=== PATIENT | female | born 1940 | race Caucasian/White ===

== ENCOUNTER 2017-04-09 13:13 | Emergency (ER) | payer MEDICARE ==
[~2017-04-09] VITALS: Ht 152.4 cm; Wt 67.2 kg
[~2017-04-09 13:13] MED LIST: ALPR-475 PO; AMLO5TAB2 PO; ATOR20TA9 PO; BIFI4CAP PO; CHOL100018 PO; CIPR500T87 PO; CYAN500T22 PO; FERR134T2 PO; FLUT50DI INH; HYDR25TA6 PO; LISI40TA PO; METF500T4 PO; METH750T2 PO; METO25TA35 PO; METR500T PO; MULT-717 PO; NITR100C56 PO; OMEP-110 PO; POTA20TA89 PO; POTA20TA91 PO; SIMV20TA3 PO
[2017-04-09] MEDS ORDERED: SODIUM CHLORIDE FLUSH 10ML SYR IVF ONE (14:30)
[2017-04-09] MEDS ORDERED: SODIUM CHLORIDE 0.9% 1,000ML IVBOLUS ONE (14:30)
[2017-04-09 14:47] LABS: ASPARTATE AMINO TRANSFERASE 19 U/L (15-37); BLOOD UREA NITROGEN 9 mg/dL (7-18)
[2017-04-09 15:13] VITALS: BP 125/77
== END 2017-04-09 15:43 | disposition home or self-care (01) ==
LOC: ED 15:37
DX: K92.1 Melena (principal); Z87.440 Personal history of urinary (tract) infections; K21.9 Gastro-esophageal reflux disease without esophagitis; E11.8 Type 2 diabetes mellitus with unspecified complications; I10 Essential (primary) hypertension; Z88.0 Allergy status to penicillin; Z88.1 Allergy status to other antibiotic agents
CPT/HCPCS: 36415; 80053; 83605; 85025; 86850; 86900; 93005; 96360; 99285; J7030

== ENCOUNTER 2017-05-22 04:59 | Emergency (ER) | payer MEDICARE ==
[~2017-05-22] VITALS: Ht 152.4 cm; Wt 64.9 kg
[2017-05-22 06:07] LABS: ASPARTATE AMINO TRANSFERASE 15 U/L (15-37); BLOOD UREA NITROGEN 11 mg/dL (7-18)
[2017-05-22 06:30] VITALS: BP 136/78
== END 2017-05-22 06:38 | disposition home or self-care (01) ==
LOC: ED 05:49
DX: R19.7 Diarrhea, unspecified (principal); Z88.0 Allergy status to penicillin
CPT/HCPCS: 36415; 80053; 83605; 83690; 85025; 85610; 93005; 99285

== ENCOUNTER → 2017-06-07 | Outpatient (CLI) | payer MEDICARE | END | disposition home or self-care (01) | LOC: CFH 13:34 → EDSTATUS 14:15 | PROVIDERS: ATTEND Nurse Practitioner | DX: M50.30 Other cervical disc degeneration, unspecified cervical region (principal); M48.02 Spinal stenosis, cervical region; M50.20 Other cervical disc displacement, unspecified cervical region; M43.12 Spondylolisthesis, cervical region; M25.78 Osteophyte, vertebrae | CPT/HCPCS: 72040; 72141 ==

== ENCOUNTER → 2017-10-31 | Outpatient (CLI) | payer MEDICARE ==
[~2017-10-31] MED LIST changes: +CHOL100012 PO; -CHOL100018 PO
== END | disposition home or self-care (01) ==
LOC: CFH 07:28
PROVIDERS: ATTEND Nurse Practitioner Family
DX: Z12.31 Encounter for screening mammogram for malignant neoplasm of breast (principal)
CPT/HCPCS: 77063; G0202

== ENCOUNTER → 2018-04-24 | Outpatient (CLI) | payer MEDICARE ==
[~2018-04-24] MED LIST changes: +SAXA5TAB PO
== END ==
LOC: CVU 09:19
PROVIDERS: ATTEND Internal Medicine Cardiovascular Disease
DX: I35.0 Nonrheumatic aortic (valve) stenosis (principal); I10 Essential (primary) hypertension; E11.9 Type 2 diabetes mellitus without complications
CPT/HCPCS: 93306

== ENCOUNTER → 2018-06-03 | Outpatient (CLI) | payer MEDICARE ==
[~2018-06-03] MED LIST changes: -METF500T4 PO; +METF500T5 PO; +OMNIPAQUE 350 MG/ML, 100ML BOTTLE ONE
== END | disposition home or self-care (01) ==
LOC: CFH 13:55
PROVIDERS: ATTEND Internal Medicine Cardiovascular Disease
DX: I77.810 Thoracic aortic ectasia (principal)
CPT/HCPCS: 71275; 82565; Q9967

== ENCOUNTER 2018-08-30 09:59 | Observation (INO) | payer MEDICARE ==
[~2018-08-30] VITALS: Ht 152.4 cm; Wt 65.9 kg
[~2018-08-30 09:59] MED LIST changes: -AMLO5TAB2 PO; +AMLO5TAB7 PO; +METF500T17 PO; -METF500T5 PO; -OMNIPAQUE 350 MG/ML, 100ML BOTTLE ONE
[2018-08-30] MEDS ORDERED: ASPIRIN 81 MG TABLET CHEW PO ONE (10:30)
[2018-08-30] MEDS ORDERED: NITROGLYCERIN SINGLE TAB 0.4 MG SL PRN (10:30)
[2018-08-30] MEDS ORDERED: SODIUM CHLORIDE FLUSH 10ML SYR IVF ONE (10:30)
[2018-08-30] MEDS ORDERED: ASPIRIN 81 MG TABLET CHEW ONE (10:57)
[2018-08-30 11:15] LABS: ALBUMIN 4.2 g/dL (3.4-5.0); ANION GAP 8 mmol/L (5-15); CALCIUM 9.5 mg/dL (8.5-10.1); CHLORIDE 100 mmol/L (98-107)
[2018-08-30 11:17] LABS: D-DIMER 0.57 ug/mlFEU (0.00-0.52); INTERNATIONAL NORMALIZED RATIO 0.97 (0.93-1.1)
[2018-08-30 11:20] LABS: ALANINE AMINOTRANSFERASE 22 U/L (12-78); ALKALINE PHOSPHATASE 80 U/L (45-117); BILIRUBIN,TOTAL 0.4 mg/dL (0.2-1.0); CREATININE 0.72 mg/dL (0.55-1.02); TOTAL PROTEIN 8.6 g/dL (6.4-8.2); TROPONIN I < 0.015 ng/mL (0.000-0.045)
[2018-08-30 11:22] LABS: BASOPHILS # (AUTO) 0.04 x10^3/uL (0-0.1); BASOPHILS % (AUTO) 0 % (0-1); EOSINOPHILS # (AUTO) 0.74 x10^3/uL (0-0.4); EOSINOPHILS % (AUTO) 8 % (1-7); LYMPHOCYTES # (AUTO) 2.85 x10^3/uL (1-3.4); LYMPHOCYTES % (AUTO) 31 % (22-44); MD NO; MEAN CORPUSCULAR HEMOGLOBIN 31.6 pg (27.0-34.8); MEAN CORPUSCULAR HGB CONC 33.8 g/dL (32.4-35.8); MEAN CORPUSCULAR VOLUME 93.6 fL (80-100); MEAN PLATELET VOLUME 8.2 fL (7.4-10.4); MONOCYTES # (AUTO) 0.95 x10^3/uL (0.2-0.8); MONOCYTES % (AUTO) 10 % (2-9); NEUTROPHILS # (AUTO) 4.76 x10^3/uL (1.8-6.8); NEUTROPHILS % (AUTO) 51 % (42-75); PLATELET COUNT 259 x10^3/uL (130-400)
[2018-08-30] MEDS ORDERED: ATOR20TA PO (11:30)
[2018-08-30] MEDS ORDERED: [UNRECOGNIZED DRUG - OTHER] PO (11:30)
[2018-08-30] MEDS ORDERED: TRIA15CR3 TD (11:30)
[2018-08-30] MEDS ORDERED: MELA1TAB22 PO (11:30)
[2018-08-30] MEDS ORDERED: ALKALOL (11:30)
[2018-08-30] MEDS ORDERED: GLIM2TAB2 PO (11:30)
[2018-08-30] MEDS ORDERED: METH1TAB21 PO (11:30)
[2018-08-30] MEDS ORDERED: ASCO10004 PO (11:30)
[2018-08-30] MEDS ORDERED: BIFI4CAP PO (11:30)
[2018-08-30] MEDS ORDERED: LISI40TA PO (11:30)
[2018-08-30] MEDS ORDERED: NITROGLYCERIN SINGLE TAB 0.4 MG SL ONE (12:12)
[2018-08-30 13:06] VITALS: BP 133/73
[2018-08-30] MEDS ORDERED: HYDROcodone/APAP 5/325 TABLET PO PRN (14:00)
[2018-08-30] MEDS ORDERED: TEMAZEPAM 15 MG CAPSULE PO PRN (14:00)
[2018-08-30] MEDS ORDERED: ONDANSETRON 2MG/ML, 2ML IVPush PRN (14:00)
[2018-08-30] MEDS ORDERED: LABETALOL 5MG/ML, 20ML IVPush PRN (14:00)
[2018-08-30] MEDS ORDERED: morphine SULFATE 10 MG/ML, 1ML IVPush PRN (14:00)
[2018-08-30] MEDS ORDERED: ACETAMINOPHEN 325 MG TABLET PO PRN (14:00)
[2018-08-30] MEDS ORDERED: OMNIPAQUE 350 MG/ML, 100ML BOTTLE ONE (15:50)
[2018-08-30] MEDS: POTASSIUM CHLORIDE 20 MEQ TAB.ER.PRT PO SCH ×2 (17:26→17:27)
[2018-08-30 20:35] VITALS: BP 106/63
[2018-08-30] MEDS: METHENAMINE HIPPURATE 1 GM TABLET PO SCH (20:51)
[2018-08-30] MEDS: ASCORBIC ACID 500 MG TABLET PO SCH (20:51)
[2018-08-30] MEDS ORDERED: ATORVASTATIN 20 MG TABLET PO SCH (21:00)
[2018-08-30] MEDS ORDERED: TRIAMCINOLONE CRM 0.1%, 15GM TP SCH (21:00)
[2018-08-30] MEDS ORDERED: TRIAMCINOLONE CRM 0.1%, 15GM TP PRN (21:00)
[2018-08-30] MEDS ORDERED: TEMPLATE NON-FORMULARY MED. (Melatonin/Pyridoxine Hcl (B6)** (Melatonin 3 Mg Tablet**) 1 T HOMEMEDPO SCH (21:00)
[2018-08-30] MEDS ORDERED: TEMPLATE NON-FORMULARY MED. (Bifidobacterium Infantis** (Align**) 4 MG) HOMEMEDPO SCH (21:00)
[2018-08-30] MEDS ORDERED: FLUTICASONE PROPIONATE HOMEMEDPO SCH (21:00)
[2018-08-30 22:29] LABS: TROPONIN I < 0.015 ng/mL (0.000-0.045)
[2018-08-31 01:50] VITALS: BP 107/66
[2018-08-31 05:18] LABS: TROPONIN I < 0.015 ng/mL (0.000-0.045)
[2018-08-31 05:35] LABS: HEMOGLOBIN A1C 6.3 % (4.2-6.3)
[2018-08-31] MEDS ORDERED: METOPROLOL SUCCINATE 25 MG TAB.ER.24H PO SCH (06:00)
[2018-08-31 06:03] VITALS: BP 122/64
[2018-08-31 08:22] VITALS: BP 143/76
[2018-08-31] MEDS ORDERED: REGADENOSON 0.4 MG/5 ML SYRINGE ONE (08:27)
[2018-08-31] MEDS ORDERED: MULTIVITAMIN 1 TABLET PO SCH (09:00)
[2018-08-31] MEDS ORDERED: GLIMEPIRIDE 1 MG TABLET PO SCH (09:00)
[2018-08-31] MEDS ORDERED: HYDROCHLOROTHIAZIDE 25 MG TABLET PO SCH (09:00)
[2018-08-31] MEDS ORDERED: TEMPLATE NON-FORMULARY MED. (Bifidobacterium Infantis** (Align**) 4 MG) HOMEMEDPO SCH (09:00)
[2018-08-31] MEDS ORDERED: CYANOCOBALAMIN 1,000 MCG TABLET PO SCH (09:00)
[2018-08-31] MEDS ORDERED: AMLODIPINE 5 MG TABLET PO SCH (09:00)
[2018-08-31] MEDS ORDERED: CHOLECALCIFEROL 1,000 UNIT TABLET PO SCH (09:00)
[2018-08-31] MEDS: POTASSIUM CHLORIDE 20 MEQ TAB.ER.PRT PO SCH ×2 (10:39→16:00)
[2018-08-31] MEDS: LISINOPRIL 20 MG TABLET PO SCH ×2 (10:41→11:27)
[2018-08-31] MEDS: ASCORBIC ACID 500 MG TABLET PO SCH (10:41)
[2018-08-31] MEDS: METHENAMINE HIPPURATE 1 GM TABLET PO SCH (10:42)
[2018-08-31] MEDS: OMEPRAZOLE 20 MG CAPSULE.DR PO SCH ×2 (10:42→16:01)
[2018-08-31] MEDS ORDERED: METO25TA91 PO (10:43)
[2018-08-31 13:48] VITALS: BP 111/72
[2018-08-31 14:52] LABS: CLOSTRIDIUM DIFFICILE ANTIGEN NEGATIVE; CLOSTRIDIUM DIFFICILE TOXIN NEGATIVE (Negative)
== END 2018-08-31 17:03 | disposition home or self-care (01) ==
LOC: ED 11:14 → EDIP 12:02 → INTOOBSV 12:02 → 5SO 12:48
PROVIDERS: ADMIT Internal Medicine; ATTEND Internal Medicine
DX: R07.9 Chest pain, unspecified (principal); E11.9 Type 2 diabetes mellitus without complications; E78.00 Pure hypercholesterolemia, unspecified; E78.5 Hyperlipidemia, unspecified; I10 Essential (primary) hypertension; J45.909 Unspecified asthma, uncomplicated; K21.9 Gastro-esophageal reflux disease without esophagitis; Z23 Encounter for immunization; Z80.0 Family history of malignant neoplasm of digestive organs; Z80.8 Family history of malignant neoplasm of other organs or systems; Z82.49 Family history of ischemic heart disease and other diseases of the circulatory system; Z86.010 Personal history of colon polyps; Z86.19 Personal history of other infectious and parasitic diseases; Z86.79 Personal history of other diseases of the circulatory system; Z87.19 Personal history of other diseases of the digestive system; Z90.710 Acquired absence of both cervix and uterus
CPT/HCPCS: 36415; 71045; 71275; 78452; 80053; 82962; 83036; 83690; 84443; 84484; 85025; 85379; 85610; 85730; 87324; 93005; 93017; 99285; A9502; C9898; G0378; J2785; Q9967

== ENCOUNTER 2018-12-28 10:12 | Inpatient (IN) | payer MEDICARE ==
[~2018-12-28] VITALS: Ht 152.4 cm; Wt 63.0 kg
[~2018-12-28 10:12] MED LIST changes: +ALKALOL; +AMLO-150 PO; -AMLO5TAB7 PO; +ASCO10004 PO; +ATOR20TA PO; +ATOR20TA37 PO; -ATOR20TA9 PO; +GLIM2TAB2 PO; +MELA1TAB22 PO; +METH1TAB21 PO; +METO25TA91 PO; +TRIA15CR3 TD; +[UNRECOGNIZED DRUG - OTHER] PO
[2018-12-28 11:20] LABS: BASOPHILS # (AUTO) 0.03 x10^3/uL (0-0.1); BASOPHILS % (AUTO) 0 % (0-1); EOSINOPHILS # (AUTO) 0.12 x10^3/uL (0-0.4); EOSINOPHILS % (AUTO) 2 % (1-7); LYMPHOCYTES # (AUTO) 1.65 x10^3/uL (1-3.4); LYMPHOCYTES % (AUTO) 23 % (22-44); MD NO; MEAN CORPUSCULAR HEMOGLOBIN 31.7 pg (27.0-34.8); MEAN CORPUSCULAR HGB CONC 33.8 g/dL (32.4-35.8); MEAN CORPUSCULAR VOLUME 93.9 fL (80-100); MEAN PLATELET VOLUME 7.9 fL (7.4-10.4); MONOCYTES % (AUTO) 8 % (2-9); NEUTROPHILS # (AUTO) 4.87 x10^3/uL (1.8-6.8); NEUTROPHILS % (AUTO) 67 % (42-75); PLATELET COUNT 308 x10^3/uL (130-400); RED BLOOD COUNT 4.55 x10^6/uL (3.82-5.3); RED CELL DISTRIBUTION WIDTH 13.5 % (9.6-15.2)
[2018-12-28 11:33] LABS: ALANINE AMINOTRANSFERASE 19 U/L (12-78); ALBUMIN 3.7 g/dL (3.4-5.0); ANION GAP 8 mmol/L (5-15); CALCIUM 10.2 mg/dL (8.5-10.1); CHLORIDE 105 mmol/L (98-107); CREATININE 0.71 mg/dL (0.55-1.02)
[2018-12-28 11:37] LABS: ALKALINE PHOSPHATASE 97 U/L (45-117); BILIRUBIN,TOTAL 0.4 mg/dL (0.2-1.0); TOTAL PROTEIN 7.9 g/dL (6.4-8.2); TROPONIN I < 0.015 ng/mL (0.000-0.045)
[2018-12-28] MEDS ORDERED: DOCUSATE 100 MG CAPSULE PO PRN (12:30)
[2018-12-28] MEDS ORDERED: morphine SULFATE 10 MG/ML, 1ML IVPush PRN (12:30)
[2018-12-28] MEDS ORDERED: ONDANSETRON 2MG/ML, 2ML IVPush PRN (12:30)
[2018-12-28] MEDS ORDERED: POLYETHYLENE GLYCOL 17 GM PACKET PO PRN (12:30)
[2018-12-28] MEDS ORDERED: BISACODYL 10 MG SUPP PR PRN (12:30)
[2018-12-28] MEDS ORDERED: hydrALAzine 20 MG/ML, 1ML IVPush PRN (12:30)
[2018-12-28] MEDS ORDERED: ACETAMINOPHEN 325 MG TABLET PO PRN (12:30)
--- NOTE | 2018-12-28 13:03 | NUR ---
PT IN BED ON CARDIAC, O2, AND BP MONITORING. MEAL ORDERED PER MD ORDER. NO WANTS OR NEEDS AT THIS TIME.
[2018-12-28] MEDS ORDERED: OMNIPAQUE 350 MG/ML, 100ML BOTTLE ONE (14:22)
--- NOTE | 2018-12-28 14:44 | NUR ---
pt up to bathroom. ambulates with a steady gait.
--- NOTE | 2018-12-28 14:44 | NUR ---
12 oz of fluid consumed with lunch.
[2018-12-28] MEDS: INSULIN LISPRO 100 UNITS/ML, PEN SQ-INSULIN SCH ×2 (16:00→21:25)
[2018-12-28 16:40] VITALS: BP 134/68
[2018-12-28] MEDS ORDERED: BUDESONIDE 0.5 MG/2 ML INHA HHN SCH (17:00)
[2018-12-28 17:23] LABS: TROPONIN I < 0.015 ng/mL (0.000-0.045)
[2018-12-28] MEDS: POTASSIUM CHLORIDE 20 MEQ TAB.ER.PRT PO SCH ×2 (18:23→21:22)
[2018-12-28 19:21] VITALS: BP 120/75
[2018-12-28] MEDS ORDERED: LISINOPRIL 20 MG TABLET PO SCH (21:00)
[2018-12-28] MEDS ORDERED: ATORVASTATIN 20 MG TABLET PO SCH (21:00)
[2018-12-28] MEDS ORDERED: MELATONIN 3 MG TABLET PO SCH (21:00)
[2018-12-28 21:09] LABS: TROPONIN I 0.017 ng/mL (0.000-0.045)
[2018-12-28] MEDS: TRIAMCINOLONE CRM 0.1%, 15GM HOMETP SCH (21:20)
[2018-12-28] MEDS: METHENAMINE HIPPURATE 1 GM TABLET PO SCH (21:21)
[2018-12-28] MEDS: SODIUM CHLORIDE FLUSH 10ML SYR IVF SCH (21:22)
[2018-12-28] MEDS: ASCORBIC ACID 500 MG TABLET PO SCH (21:23)
[2018-12-29 01:41] VITALS: BP 108/66
[2018-12-29 03:43] LABS: BASOPHILS # (AUTO) 0.03 x10^3/uL (0-0.1); BASOPHILS % (AUTO) 0 % (0-1); EOSINOPHILS # (AUTO) 0.46 x10^3/uL (0-0.4); EOSINOPHILS % (AUTO) 6 % (1-7); LYMPHOCYTES # (AUTO) 2.33 x10^3/uL (1-3.4); LYMPHOCYTES % (AUTO) 33 % (22-44); MD NO; MEAN CORPUSCULAR HEMOGLOBIN 31.2 pg (27.0-34.8); MEAN CORPUSCULAR HGB CONC 33.3 g/dL (32.4-35.8); MEAN CORPUSCULAR VOLUME 93.7 fL (80-100); MEAN PLATELET VOLUME 7.5 fL (7.4-10.4); MONOCYTES # (AUTO) 0.76 x10^3/uL (0.2-0.8); MONOCYTES % (AUTO) 11 % (2-9); NEUTROPHILS # (AUTO) 3.54 x10^3/uL (1.8-6.8); NEUTROPHILS % (AUTO) 50 % (42-75); PLATELET COUNT 306 x10^3/uL (130-400); RED BLOOD COUNT 4.28 x10^6/uL (3.82-5.3); RED CELL DISTRIBUTION WIDTH 13.4 % (9.6-15.2)
[2018-12-29 04:01] LABS: TROPONIN I < 0.015 ng/mL (0.000-0.045)
[2018-12-29 04:43] LABS: ANION GAP 12 mmol/L (5-15); CALCIUM 9.2 mg/dL (8.5-10.1); CHLORIDE 104 mmol/L (98-107); CREATININE 0.72 mg/dL (0.55-1.02)
[2018-12-29] MEDS: INSULIN LISPRO 100 UNITS/ML, PEN SQ-INSULIN SCH ×3 (07:00→16:00)
[2018-12-29] MEDS ORDERED: NEOM28.32 NS (07:45)
[2018-12-29] MEDS ORDERED: ASPI81TA45 PO (07:45)
[2018-12-29] MEDS ORDERED: OMEP20CA14 PO (07:45)
[2018-12-29] MEDS ORDERED: TRAM50TA2 PO (07:45)
[2018-12-29] MEDS ORDERED: PEG15DRO2 EACHEYE (07:45)
[2018-12-29] MEDS ORDERED: FLUT1AER INH (07:45)
[2018-12-29 08:15] VITALS: BP 115/75
[2018-12-29] MEDS ORDERED: BUDESONIDE 0.5 MG/2 ML INHA HHN SCH (09:00)
[2018-12-29] MEDS ORDERED: TEMPLATE NON-FORMULARY MED. (Bifidobacterium Infantis** (Align**) 4 MG) PO SCH (09:00)
[2018-12-29] MEDS ORDERED: HYDROCHLOROTHIAZIDE 25 MG TABLET PO SCH (09:00)
[2018-12-29] MEDS: TRIAMCINOLONE CRM 0.1%, 15GM HOMETP SCH (09:00)
[2018-12-29] MEDS ORDERED: AMLODIPINE 5 MG TABLET PO SCH (09:00)
[2018-12-29] MEDS ORDERED: CHOLECALCIFEROL 1,000 UNIT TABLET PO SCH (09:00)
[2018-12-29] MEDS ORDERED: CYANOCOBALAMIN 1,000 MCG TABLET PO SCH (09:00)
[2018-12-29] MEDS ORDERED: METOPROLOL SUCCINATE 25 MG TAB.ER.24H PO SCH (09:00)
[2018-12-29] MEDS ORDERED: MULTIVITAMINS/MINERALS TABLET PO SCH (09:00)
[2018-12-29] MEDS: SODIUM CHLORIDE FLUSH 10ML SYR IVF SCH (10:11)
[2018-12-29] MEDS: METHENAMINE HIPPURATE 1 GM TABLET PO SCH (10:12)
[2018-12-29] MEDS: ASCORBIC ACID 500 MG TABLET PO SCH (10:12)
[2018-12-29] MEDS: POTASSIUM CHLORIDE 20 MEQ TAB.ER.PRT PO SCH ×3 (10:12→16:44)
[2018-12-29 13:30] VITALS: BP 128/82
== END 2018-12-29 17:24 | disposition home or self-care (01) | DRG 301 ==
LOC: ED 12:09 → EDIP 12:10 → 5SO 15:54
PROVIDERS: ADMIT Hospitalist; ATTEND Hospitalist
DX: I71.2 Thoracic aortic aneurysm, without rupture (principal); I11.9 Hypertensive heart disease without heart failure; G89.29 Other chronic pain; E78.5 Hyperlipidemia, unspecified; K21.9 Gastro-esophageal reflux disease without esophagitis; E11.65 Type 2 diabetes mellitus with hyperglycemia; Z60.2 Problems related to living alone; I71.4 Abdominal aortic aneurysm, without rupture; Z90.710 Acquired absence of both cervix and uterus; Z86.79 Personal history of other diseases of the circulatory system; Z83.3 Family history of diabetes mellitus; Z79.84 Long term (current) use of oral hypoglycemic drugs; Z80.9 Family history of malignant neoplasm, unspecified; Z90.89 Acquired absence of other organs; Z98.42 Cataract extraction status, left eye; Z98.41 Cataract extraction status, right eye; Z88.0 Allergy status to penicillin; Z88.1 Allergy status to other antibiotic agents
CPT/HCPCS: 36415; 71045; 71275; 80048; 80053; 82962; 83880; 84484; 85025; 93005; 93306; 94640; 99285; G0378; J7626; Q9967

== ENCOUNTER 2020-07-12 14:57 | Emergency (ER) | payer MEDICARE ==
[~2020-07-12] VITALS: Ht 152.4 cm; Wt 62.8 kg
[~2020-07-12 14:57] MED LIST changes: -ALPR-475 PO; +ALPR0.5T7 PO; +ASPI81TA45 PO; +CIPR500T3 PO; +CRAN500T2 PO; +FLUT1AER INH; -GLIM2TAB2 PO; +GLIM2TAB7 PO; +NEOM28.32 NS; +OMEP20CA20 PO; +PEG15DRO2 EACHEYE; +SIMV20TA19 PO; -SIMV20TA3 PO; +TRAM50TA2 PO; -TRIA15CR3 TD; +TRIA15CR61 TD; +VANC1VIA3 PO
--- NOTE | 2020-07-12 15:50 | NUR ---
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 PT AMBULATORY WITH STEADY GAIT. ZACH
[2020-07-12] MEDS ORDERED: ATOR-2 PO (16:23)
--- NOTE | 2020-07-12 17:45 | NUR ---
CONTINUE TO MONITOR PT. AWAITING RE-EVAL
[2020-07-12 17:56] LABS: BASOPHILS # (AUTO) 0.03 x10^3/uL (0-0.1); BASOPHILS % (AUTO) 0 % (0-1); EOSINOPHILS # (AUTO) 0.39 x10^3/uL (0-0.4); EOSINOPHILS % (AUTO) 5 % (1-7); LYMPHOCYTES # (AUTO) 2.89 x10^3/uL (1-3.4); LYMPHOCYTES % (AUTO) 37 % (22-44); MD NO; MEAN CORPUSCULAR HEMOGLOBIN 31.8 pg (27.0-34.8); MEAN CORPUSCULAR HGB CONC 33.4 g/dL (32.4-35.8); MEAN CORPUSCULAR VOLUME 95.4 fL (80-100); MEAN PLATELET VOLUME 8.3 fL (7.4-10.4); MONOCYTES # (AUTO) 0.76 x10^3/uL (0.2-0.8); MONOCYTES % (AUTO) 10 % (2-9); NEUTROPHILS # (AUTO) 3.79 x10^3/uL (1.8-6.8); NEUTROPHILS % (AUTO) 48 % (42-75); PLATELET COUNT 267 x10^3/uL (130-400); RED BLOOD COUNT 4.32 x10^6/uL (3.82-5.3); RED CELL DISTRIBUTION WIDTH 13.8 % (9.6-15.2)
[2020-07-12 18:04] LABS: ALANINE AMINOTRANSFERASE 23 U/L (12-78); ANION GAP 10 mmol/L (5-15); CALCIUM 9.4 mg/dL (8.5-10.1); CHLORIDE 100 mmol/L (98-107); CREATININE 0.64 mg/dL (0.55-1.02)
[2020-07-12 18:08] LABS: ALKALINE PHOSPHATASE 70 U/L (45-117); BILIRUBIN,TOTAL 0.7 mg/dL (0.2-1.0); TOTAL PROTEIN 7.7 g/dL (6.4-8.2); TROPONIN I < 0.015 ng/mL (0.000-0.045)
[2020-07-12 18:35] VITALS: BP 151/81
--- NOTE | 2020-07-12 18:36 | NUR ---
UOB TO BATHROOM. BACK ON MONITOR. CONTINUES TO HAVE RIGHT CP UNDER RIGHT BREAST. CONTINUES TO AWAITIT RE-EVAL
--- NOTE | 2020-07-12 18:54 | NUR ---
PROVIDER RE-EVAL WITH PT TO BE DISCHARGED
--- NOTE | 2020-07-12 19:09 | NUR ---
REPORT OF PT FROM ALEN CORDOVA AND ASSUMING CARE OF PT AT THIS TIME.
== END 2020-07-12 19:27 | disposition home or self-care (01) ==
LOC: ED 18:00
DX: R07.89 Other chest pain (principal); R06.02 Shortness of breath; R05 Cough; R00.0 Tachycardia, unspecified; I10 Essential (primary) hypertension; K21.9 Gastro-esophageal reflux disease without esophagitis; J45.909 Unspecified asthma, uncomplicated; E11.9 Type 2 diabetes mellitus without complications; E78.00 Pure hypercholesterolemia, unspecified; E78.5 Hyperlipidemia, unspecified
CPT/HCPCS: 36415; 71045; 80053; 83880; 84484; 85025; 85379; 93005; 99285

== ENCOUNTER 2020-08-23 11:50 | Observation (INO) | payer MEDICARE ==
[~2020-08-23] VITALS: Ht 152.4 cm; Wt 61.8 kg
[~2020-08-23 11:50] MED LIST changes: +ASCO100018 PO; -ASCO10004 PO; +ATOR-2 PO
--- NOTE | 2020-08-23 12:47 | NUR ---
PT CAME IN CO OF NAUSEA, POOR APPETITE, CP, SOB, WEAKNESS X 2-3 DAYS. PT DENIES COUGH OR SORE THROAT. PT REPORTS SUBJECTIVE FEVERS. PT RESTING IN GURNEY. LABS DRAWN. EKG COMPELTE. PT CONNECTED TO MONITORING EQUIPMENT.
[2020-08-23 13:05] LABS: BASOPHILS # (AUTO) 0.06 x10^3/uL (0-0.1); BASOPHILS % (AUTO) 1 % (0-1); EOSINOPHILS # (AUTO) 0.08 x10^3/uL (0-0.4); EOSINOPHILS % (AUTO) 1 % (1-7); LYMPHOCYTES # (AUTO) 2.05 x10^3/uL (1-3.4); LYMPHOCYTES % (AUTO) 18 % (22-44); MD NO; MEAN CORPUSCULAR HEMOGLOBIN 31.7 pg (27.0-34.8); MEAN CORPUSCULAR HGB CONC 32.7 g/dL (32.4-35.8); MEAN PLATELET VOLUME 7.1 fL (7.4-10.4); MONOCYTES # (AUTO) 0.73 x10^3/uL (0.2-0.8); MONOCYTES % (AUTO) 6 % (2-9); NEUTROPHILS # (AUTO) 8.48 x10^3/uL (1.8-6.8); NEUTROPHILS % (AUTO) 74 % (42-75); PLATELET COUNT 289 x10^3/uL (130-400); RED BLOOD COUNT 4.28 x10^6/uL (3.82-5.3); RED CELL DISTRIBUTION WIDTH 13.4 % (9.6-15.2)
[2020-08-23 13:08] LABS: RAPID INFLUENZA A Negative (Negative); RAPID INFLUENZA B Negative (Negative)
[2020-08-23 13:11] LABS: ALANINE AMINOTRANSFERASE 20 U/L (12-78); ALBUMIN 3.7 g/dL (3.4-5.0); ANION GAP 8 mmol/L (5-15); CALCIUM 9.7 mg/dL (8.5-10.1); CHLORIDE 97 mmol/L (98-107); CREATININE 0.65 mg/dL (0.55-1.02)
[2020-08-23 13:16] LABS: ALKALINE PHOSPHATASE 65 U/L (45-117); BILIRUBIN,TOTAL 0.9 mg/dL (0.2-1.0); TOTAL PROTEIN 7.4 g/dL (6.4-8.2); TROPONIN I < 0.015 ng/mL (0.000-0.045)
--- NOTE | 2020-08-23 13:59 | NUR ---
AMBULATED TO BATHROOM STEADY GAIT WITHOUT ASSISTANCE AND URINE SAMPLE OBTAINED
[2020-08-23 14:11] LABS: MICROSCOPIC AUTO
--- NOTE | 2020-08-23 14:59 | NUR ---
MD AT BEDSIDE EXAMING PT AND DISCUSSING POC
[2020-08-23] MEDS ORDERED: LISINOPRIL 10 MG TABLET PO ONE (15:00)
[2020-08-23] MEDS ORDERED: CEFDINIR 300 MG CAPSULE PO ONE (15:00)
[2020-08-23] MEDS ORDERED: LISINOPRIL 10 MG TABLET ONE (15:27)
[2020-08-23] MEDS ORDERED: CEFDINIR 300 MG CAPSULE ONE (15:27)
[2020-08-23] MEDS: INSULIN LISPRO 100 UNITS/ML, PEN SQ-INSULIN SCH ×2 (17:00→21:00)
[2020-08-23] MEDS ORDERED: OXYcodone/APAP 5/325MG TABLET PO PRN (17:00)
[2020-08-23] MEDS ORDERED: ACETAMINOPHEN 325 MG TABLET PO PRN (17:00)
[2020-08-23] MEDS ORDERED: PROMETHAZINE 25 MG/ML, 1ML IM PRN (17:00)
[2020-08-23] MEDS ORDERED: morphine SULFATE 10 MG/ML, 1ML IVPush PRN (17:00)
[2020-08-23] MEDS ORDERED: ONDANSETRON 2MG/ML, 2ML IVPush PRN (17:00)
[2020-08-23] MEDS ORDERED: NITROGLYCERIN 0.4 MG BOTTLE (25 TABS) SL PRN (17:00)
[2020-08-23] MEDS ORDERED: LABETALOL 5MG/ML, 20ML IVPush PRN (17:00)
[2020-08-23] MEDS ORDERED: ASPIRIN 81 MG TABLET CHEW PO ONE (17:30)
--- NOTE | 2020-08-23 17:34 | NUR ---
PT RESTING COMFORTABLY IN BED, ON HER CELL PHONE. PT ATE DINNER PROVIDED.
[2020-08-23 17:43] LABS: TROPONIN I < 0.015 ng/mL (0.000-0.045)
[2020-08-23] MEDS ORDERED: ENOXAPARIN 40 MG/0.4 ML ONE (18:31)
[2020-08-23] MEDS ORDERED: ASPIRIN 81 MG TABLET CHEW ONE (18:31)
--- NOTE | 2020-08-23 18:32 | NUR ---
PT RESTING IN BED WITH TV ON, RESTIG COMFORTABLY. PT MEDICATED PER JAN.
[2020-08-23] MEDS: ENOXAPARIN 40 MG/0.4 ML SQ SCH (18:34)
--- NOTE | 2020-08-23 19:07 | NUR ---
REPORT TO PILLO LOWRY
--- NOTE | 2020-08-23 19:10 | NUR ---
REPORT OF PT FROM ALEN JASON AND ASSUMING CARE OF PT AT THIS TIME. PT RESTING COMFORTABLY IN [facility]OMER [facility].
--- NOTE | 2020-08-23 19:49 | NUR ---
REPORT OF PT TO ALEN FRANKS. ALL QUESTIONS ANSWERED. PT NOTIFIED OF ROOM ASSIGNMENT AND VERBALIZES UNDERSTANDING. TECH PAGED TO TRANSPORT PT TO FLOOR AT THIS TIME.
[2020-08-23] MEDS: ATORVASTATIN 20 MG TABLET PO SCH (20:32)
[2020-08-23 20:37] VITALS: BP 123/75
[2020-08-23] MEDS: SODIUM CHLORIDE 0.9% 1,000 ML IV SCH (21:21)
[2020-08-23 23:35] LABS: TROPONIN I < 0.015 ng/mL (0.000-0.045)
[2020-08-24 00:44] VITALS: BP 114/66
[2020-08-24] MEDS: ASPIRIN 325 MG TABLET EC PO SCH (05:38)
[2020-08-24 06:09] LABS: BASOPHILS # (AUTO) 0.03 x10^3/uL (0-0.1); BASOPHILS % (AUTO) 0 % (0-1); EOSINOPHILS # (AUTO) 0.16 x10^3/uL (0-0.4); EOSINOPHILS % (AUTO) 2 % (1-7); LYMPHOCYTES # (AUTO) 1.87 x10^3/uL (1-3.4); LYMPHOCYTES % (AUTO) 24 % (22-44); MD NO; MEAN CORPUSCULAR HEMOGLOBIN 31.7 pg (27.0-34.8); MEAN CORPUSCULAR HGB CONC 32.7 g/dL (32.4-35.8); MEAN PLATELET VOLUME 7.1 fL (7.4-10.4); MONOCYTES % (AUTO) 6 % (2-9); NEUTROPHILS # (AUTO) 5.25 x10^3/uL (1.8-6.8); NEUTROPHILS % (AUTO) 67 % (42-75); PLATELET COUNT 252 x10^3/uL (130-400); RED BLOOD COUNT 3.94 x10^6/uL (3.82-5.3); RED CELL DISTRIBUTION WIDTH 13.4 % (9.6-15.2)
[2020-08-24 06:11] LABS: ALBUMIN 3.1 g/dL (3.4-5.0); ANION GAP 7 mmol/L (5-15); CALCIUM 8.7 mg/dL (8.5-10.1); CHLORIDE 100 mmol/L (98-107)
[2020-08-24 06:16] LABS: CREATININE 0.58 mg/dL (0.55-1.02)
[2020-08-24 06:17] LABS: ALANINE AMINOTRANSFERASE 16 U/L (12-78); ALKALINE PHOSPHATASE 55 U/L (45-117); BILIRUBIN,TOTAL 0.9 mg/dL (0.2-1.0); TOTAL PROTEIN 6.3 g/dL (6.4-8.2); TROPONIN I < 0.015 ng/mL (0.000-0.045)
[2020-08-24 07:23] VITALS: BP 144/83
[2020-08-24] MEDS: INSULIN LISPRO 100 UNITS/ML, PEN SQ-INSULIN SCH ×4 (07:35→20:38)
[2020-08-24] MEDS: FLUTICASONE/VILANTEROL 100-25MCG/INH INH SCH (09:00)
[2020-08-24] MEDS: METOPROLOL SUCCINATE 25 MG TAB.ER.24H PO SCH (09:32)
[2020-08-24] MEDS: HYDROCHLOROTHIAZIDE 25 MG TABLET PO SCH (09:32)
[2020-08-24] MEDS: SODIUM CHLORIDE 0.9% 1,000 ML IV SCH ×4 (09:32→22:29)
[2020-08-24] MEDS: AMLODIPINE 5 MG TABLET PO SCH (09:33)
[2020-08-24] MEDS ORDERED: NYSTATIN TOPICAL POWDER 15GM TP PRN (10:00)
[2020-08-24] MEDS ORDERED: OMNIPAQUE 350 MG/ML, 100ML BOTTLE ONE (10:21)
[2020-08-24 12:11] VITALS: BP 145/93
[2020-08-24] MEDS: OMEPRAZOLE 20 MG CAPSULE.DR PO SCH (16:39)
[2020-08-24] MEDS: ENOXAPARIN 40 MG/0.4 ML SQ SCH (16:39)
[2020-08-24 20:36] VITALS: BP 118/75
[2020-08-24] MEDS: ATORVASTATIN 20 MG TABLET PO SCH (20:39)
[2020-08-25 01:47] VITALS: BP 152/72
[2020-08-25] MEDS: ASPIRIN 325 MG TABLET EC PO SCH (06:00)
[2020-08-25] MEDS: INSULIN LISPRO 100 UNITS/ML, PEN SQ-INSULIN SCH ×3 (08:00→16:11)
[2020-08-25 08:25] VITALS: BP 174/90
[2020-08-25] MEDS ORDERED: REGADENOSON 0.4 MG/5 ML SYRINGE ONE (08:51)
[2020-08-25] MEDS: FLUTICASONE/VILANTEROL 100-25MCG/INH INH SCH (11:30)
[2020-08-25 14:00] VITALS: BP 160/91
[2020-08-25] MEDS: HYDROCHLOROTHIAZIDE 25 MG TABLET PO SCH (16:09)
[2020-08-25] MEDS: METOPROLOL SUCCINATE 25 MG TAB.ER.24H PO SCH (16:09)
[2020-08-25] MEDS: OMEPRAZOLE 20 MG CAPSULE.DR PO SCH (16:10)
[2020-08-25] MEDS: AMLODIPINE 5 MG TABLET PO SCH (16:10)
[2020-08-25] MEDS: ENOXAPARIN 40 MG/0.4 ML SQ SCH (16:14)
== END 2020-08-25 20:08 | disposition home or self-care (01) ==
LOC: ED 12:58 → EDIP 15:05 → INTOOBSV 15:05 → 4EST 20:12
PROVIDERS: ADMIT Family Medicine; ATTEND Family Medicine
DX: R07.89 Other chest pain (principal); Z20.828 Contact with and (suspected) exposure to other viral communicable diseases; D72.829 Elevated white blood cell count, unspecified; R82.90 Unspecified abnormal findings in urine; E87.1 Hypo-osmolality and hyponatremia; E86.1 Hypovolemia; E11.9 Type 2 diabetes mellitus without complications; J45.909 Unspecified asthma, uncomplicated; K21.9 Gastro-esophageal reflux disease without esophagitis; I71.4 Abdominal aortic aneurysm, without rupture; I16.0 Hypertensive urgency; E78.5 Hyperlipidemia, unspecified; R79.89 Other specified abnormal findings of blood chemistry; I10 Essential (primary) hypertension; N39.0 Urinary tract infection, site not specified; R51 Headache; M79.10 Myalgia, unspecified site; R53.1 Weakness; Z88.0 Allergy status to penicillin; Z86.79 Personal history of other diseases of the circulatory system; Z79.899 Other long term (current) drug therapy; Z90.710 Acquired absence of both cervix and uterus
CPT/HCPCS: 36415; 71045; 71275; 78452; 80053; 81001; 82962; 83036; 84484; 85025; 85379; 87077; 87086; 87186; 87400; 87635; 93005; 93017; 96360; 96361; 96372; 99285; A9502; C9898; G0378; J1650; J2785; J7030; Q9967